=== PATIENT | female | born 1970 | race Caucasian/White ===

== ENCOUNTER 2016-04-29 12:32 | Emergency (ER) | payer OTHER ==
[2016-04-29 12:45] VITALS: RESP 18
[2016-04-29] MEDS ORDERED: fentaNYL 100 MCG/2 ML INJ IVP ONE (12:49)
[2016-04-29] MEDS ORDERED: fentaNYL 100 MCG/2 ML INJ ONE (12:50)
--- NOTE | 2016-04-29 13:18 | EDPHY ---
General Narrative: CHIEF COMPLAINT: right knee pain HISTORY OF PRESENT ILLNESS: Patient was skiing at [place] today when she says her leg started to move out away from each other. She effectively went into a split position. She noticed sudden onset of pain and an audible pop in the right knee. Pain is in the medial region of the knee. It radiates up and down the leg into the dominguez. Severe pain that she was unable to bear weight on. Worse with any kind of movement. She was treated by electronic masking system operator with a makeshift splint of cardboard and bubble wrap. Transported by EMS here. She was seen at time of arrival. Moderate to severe pain even after fentanyl was administered EN route. No complaints distal to the dominguez. No numbness or tingling. No weakness. No head injury or loss of conscious. No chest or back pain. No abdominal pain. No injuries to the left leg or either arm. No other associated complaints or modifying factors. No bleeding disorders. No previous orthopedic history. PRIOR ORTHO INJURIES: none ESTABLISHED ORTHOPEDIST: none REVIEW OF SYSTEMS: Ten systems reviewed and are negative unless otherwise noted in the HPI EXAMINATION General Appearance: Alert, no distress Cardiovascular: Pulses normal throughout. symmetric DP and PT pulses are 2+ .Brisk cap refill Neurological: A&O, sensory symmetric, strength symmetric In both ankles and knees. Skin: Warm and dry, no rash . No laceration, abrasions or contusions Extremities: moderate pain on the right medial knee. There is mild laxity of the MCL joint. No anterior drawer. Negative Carmina's. No effusion. No posterior abnormality of the knee. Range of motion is intact but severely painful. Range of motion of the right hip, left knee and left hip fully intact. Range of motion of the ankles symmetric. Neurovascular intact distal to the knee pain. Psychiatric: Mood and affect normal DIFFERENTIAL DIAGNOSES: Including but not limited to Fracture, dislocation, fracture dislocation, sprain, strain, MCL injury, meniscal injury MDM: acute right knee pain after a valgus injury. I suspect this is an MCL and/or meniscal injury. X-ray is pending at this time. 1:40 p.m. x-ray shows soft tissue with mild effusion. There is no bony abnormality. No dislocation. She remains neurovascularly intact. She is still in moderate pain but reasonably cell. I suspect that her injuries to the medial collateral ligament possibly the medial meniscus. She will be discharged home with Russell wrap, crutches, ice, instructions to take anti-inflammatories and a short course of pain medication. She is visiting from [place] and says that she will contact her orthopedist upon return home to [place]. She was given return to the emergency department precautions and is comfortable with this plan. Weightbearing as tolerated. We discussed [id number] exercises ED Precautions: Worsening pain. Erythema, edema, cyanosis, pallor, paresthesia or anesthesia. SUPERVISION: (Elton Madison) Medical Decision Making: The patient was evaluated and managed by the physician oral surgery assistant. I have reviewed this chart and I agree with the findings and plan of care as documented , as indicated by my signature. I am the secondary supervising physician. ( Ashley Trent) - Objective Vital Signs: Initial Vital Signs Temperature (C) 36.5 C 04/29/16 12:41 Heart Rate 74 04/29/16 12:41 Respiratory Rate 18 04/29/16 12:41 Blood Pressure 110/68 04/29/16 12:41 O2 Sat (%) 97 04/29/16 12:41 O2 Delivery Mode Room Air Allergies/Adverse Reactions: codeine Allergy (Verified 04/29/16 12:40) cyclobenzaprine HCl [From Flexeril] Allergy (Verified 04/29/16 12:40) Sulfa (Sulfonamide Antibiotics) Allergy (Verified 04/29/16 12:40) tramadol Allergy (Verified 04/29/16 12:40) Home Medications: Medication Instructions Recorded oxyCODONE HCL/ACETAMINOPHEN 1 each PO Q4-6PRN PRN #15 tablet 04/29/16 [Percocet 5-325 mg Tablet] Medications Given: Discontinued Medications Fentanyl (Sublimaze) 100 mcg IVP EDNOW ONE Stop: 04/29/16 12:50 Last Admin: 04/29/16 12:53 Dose: 100 mcg Departure - Departure Disposition: Home, Routine, Self-Care Clinical Impression: Right knee sprain Qualifiers: Encounter type: initial encounter Involved ligament of knee: medial collateral ligament Qualified Code(s): S83.411A - Sprain of medial collateral ligament of right knee, initial encounter Condition: Good Instructions: Knee Sprain (ED) Additional Instructions: Ice, elevate, Russell wrap and crutches as needed for the next few days. Continue range of motion activity as we discussed but nonweightbearing until pain improves. Pain medications as needed for the next 2-3 days. Ibuprofen or Aleve [id number] as discussed for 5 days maximum. Follow up with orthopedist upon return home to [place] for definitive care. Return to ER for worsening pain, numbness, tingling or increasing swelling of the knee Referrals: Patient,NotPresent [Unknown] - As per Instructions Prescriptions: oxyCODONE HCL/ACETAMINOPHEN [Percocet 5-325 mg Tablet] 1 each PO Q4-6PRN PRN # 15 tablet PRN Reason: Pain, Breakthrough
[2016-04-29 14:16] VITALS: BP 100/62; PULSE 70; TEMP 98.1; O2SAT 92
== END 2016-04-29 13:59 | disposition home or self-care (01) ==
DX: S83.411A Sprain of medial collateral ligament of right knee, initial encounter (principal); X58.XXXA Exposure to other specified factors, initial encounter; Y99.8 Other external cause status; Y93.23 Activity, snow (alpine) (downhill) skiing, snowboarding, sledding, tobogganing and snow tubing
CPT/HCPCS: 73562; 73590; 96374; 99284; J3010